=== PATIENT | male | born 1975 | race Caucasian/White ===

== ENCOUNTER 2017-10-19 10:53 | Inpatient (IN) | payer BC ==
[~2017-10-19] VITALS: Ht 167.6 cm; Wt 121.5 kg
[~2017-10-19 10:53] MED LIST: ADDE30XR PO
[2017-10-19] MEDS ORDERED: ACETAMINOPHEN 1000 MG/100 ML 100 ML IV ONE (11:06)
[2017-10-19] MEDS ORDERED: CHLORHEXIDINE GLUCONATE 4% SOLN 120 ML BTL TOPICAL SCH (11:45)
[2017-10-19] MEDS ORDERED: POVIDONE IODINE 5% (ANTISEPSIS KIT) 4 APPLICATIONS EACH NARE PRN (11:45)
[2017-10-19] MEDS ORDERED: CEFAZOLIN INJ 2,000 MG in SODIUM CHLORIDE 0.9% INJ 100 ML IV SCH (11:45)
[2017-10-19] MEDS ORDERED: VANCOMYCIN 1 GM/200 ML INJ 200 ML IV SCH (11:45)
[2017-10-19] MEDS ORDERED: SODIUM CHLORID 0.9% 500 ML IV PRN (11:45)
[2017-10-19] MEDS ORDERED: LACTATED RINGER'S 1000 ML IV PRN (11:45)
[2017-10-19] MEDS ORDERED: CHLORHEXIDINE GLUCONATE 2 % 1 PACK (2 CLOTHS) TOPICAL PRN (11:45)
[2017-10-19] MEDS ORDERED: METOPROLOL TARTRATE 25 MG TAB PO PRN (11:45)
[2017-10-19] MEDS ORDERED: ceFAZolin INJ 1,000 MG VIAL ONE (13:31)
[2017-10-19] MEDS ORDERED: GENTAMICIN SULFATE 80 MG/2 ML VIAL ONE (13:31)
[2017-10-19] MEDS ORDERED: ceFAZolin INJ 1,000 MG VIAL IV ONE ×2 (14:45→16:41)
[2017-10-19] MEDS ORDERED: MIDAZOLAM HCL 2 MG/2 ML VIAL ONE (15:10)
[2017-10-19] MEDS ORDERED: BUPIVACAINE/EPINEPHRINE 0.25% 50 ML VIAL ONE (16:04)
[2017-10-19] MEDS ORDERED: SODIUM CHLORIDE 0.9% 20 ML VIAL ONE (16:04)
[2017-10-19] MEDS ORDERED: BUPIVACAINE LIPOSOME PF 1.3% 20 ML VIAL ONE (16:05)
--- NOTE | 2017-10-19 16:36 | PD.OP ---
cc: Ricardo Pettit MD; Ayden Pettit MD Operative Report Date of Surgery: Oct 19, 2017 Preoperative Diagnosis: Osteoarthritis right hip. Ankylosis right hip External rotation contracture, right hip Postoperative Diagnosis: Same. 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 Surgeon: Ayden Pettit Vice Admiral(s): Ricardo Pettit Operation and Findings: EBL: 400 cc INDICATION: This patient presents with significant hip pain related to of ear osteoarthritis of the right hip with an abduction and external rotation contracture. He has very limited motion. He has severe osteoarthritis with dysplasia and lateral subluxation. Despite extensive conservative care this patient continues to be painful and now presents for surgical treatment. NOTE: Ricardo Pettit was present for the entire surgical procedure as my nurse first aid. In my medical opinion her skill and care was necessary for the proper management of this patient. COMPONENTS: COMPANY: [employer] CUP: Newton Hamilton, 54 mm, 100 series, gription surface LINER: Altrx 32 mm, neutral STEM: Corail, high offset, size 10, hydroxyapatite-coated HEAD: Ceramic, 2 mm, +5, 12/14 taper PROCEDURE: This patient was brought to the operating room and anesthetized in the supine position and positioned on the fracture table with both legs held extended. The right hip and leg was scrubbed with alcohol followed by Hibiclens followed by ChloraPrep and draped sterilely. Antibiotics were given within routine time window and a timeout was done. A 4 inch incision was made starting 2 cm distal and 2 cm lateral to the anterior superior iliac spine. The fascia verna was opened longitudinally. The interval between the fascia verna and the rectus was opened down to the capsule of the hip joint. Retractors were positioned allowing good visualization of the capsule. This was opened longitudinally and flaps were created. Stay sutures were utilized. Exposure was excellent. The neck was cut at the proper location using fluoroscopy as a guide. The head was removed. With the head there was a very large osteophyte extending into the deep portion of the inferior acetabulum. This measured over 18 mm across. This almost had the appearance of an old slipped capital femoral epiphysis healed in a malunited position. This was removed in multiple pieces Deep retractors were positioned allowing good visualization of the acetabulum. Acetabulum was deepened down to the floor starting with a proper size reamer and reaming up to 53 mm. A trial was utilized. Fluoroscopy was used to check position and confirmed satisfactory alignment. The rim was reamed with a 54 mm reamer and the final cup was positioned in approximately 20 of anteversion and 40-45 of abduction. Position was satisfactory. A single hole eliminator was positioned followed by the final liner. The lifting hook was utilized. The leg was dropped to the floor, maximally externally rotated and brought across the midline. Retractors were positioned. A box osteotome was utilized followed by progressive broaching to the proper stem size. Trial reduction showed excellent alignment and fit. With 60 of external rotation the leg was dropped to the floor without evidence of anterior subluxation. The wound was irrigated. The final stem was inserted and was found to be very stable. The final reduction using the final head. Stability was as previously noted. Intraoperative x-rays were taken. The wound was irrigated copiously. Hemostasis was controlled. Local anesthesia was utilized. The capsule was repaired with #2 Tycron sutures. The fascia verna was repaired with running 0 PDS on a loop. Subcutaneous tissue was approximated with 2-0 Vicryl and skin with running intradermal 3-0 Vicryl followed by Steri-Strips. A sterile dressing was applied. The patient was awakened and taken to the recovery room in satisfactory condition. FINDINGS: There was severe osteoarthritis of the right hip. There was some evidence suggestive of an old injury from when he was very young. This might have been an old slipped capital femoral epiphysis. At any rate there was significant locking of the femoral head to the acetabulum so that it was nearly completely ankylosed. This required multiple cuts across the femoral neck and femoral head to remove this in multiple pieces. The final solution appeared to be excellent. There was no complication that was appreciated. Ayden Pettit MD Oct 19, 2017 16:36
[2017-10-19] MEDS ORDERED: ROCURONIUM INJ 50 MG/5 ML SYRINGE IV PUSH ONE (16:41)
[2017-10-19] MEDS ORDERED: PROPOFOL 200 MG/20 ML AMP IV ONE (16:41)
[2017-10-19] MEDS ORDERED: ONDANSETRON HCL 4 MG/2 ML VIAL IV ONE (16:41)
[2017-10-19] MEDS ORDERED: LACTATED RINGER'S 1000 ML INJ 1,000 ML IV ONE (16:41)
[2017-10-19] MEDS ORDERED: GLYCOPYRROLATE 1 MG/5 ML SYRINGE IV PUSH ONE (16:41)
[2017-10-19] MEDS ORDERED: PHENYLEPH/NS 1000 MCG/10 ML SYR IV ONE (16:41)
[2017-10-19] MEDS ORDERED: LIDOCAINE HCL 1% PF 5 ML SYRINGE OTHER ONE (16:41)
[2017-10-19] MEDS ORDERED: NEOSTIGMINE 5 MG/5 ML SYRINGE IV PUSH ONE (16:41)
[2017-10-19] MEDS ORDERED: DEXAMETHASONE SOD PHOS 4 MG/ML VIAL IV ONE (16:41)
--- NOTE | 2017-10-19 17:03 | RADRPT ---
EXAM DATE/TIME: 10/19/2017 14:06 [facility] COMPARISON: FLUOROSCOPY PORTABLE UP TO 1HR, October 19, 2017, 0:00. INDICATIONS : Right anterior hip ORIF. Hip fracture. MEDICAL HISTORY : None. SURGICAL HISTORY : None. ENCOUNTER: Initial ACUITY: 1 day PAIN SCORE: Non-responsive. LOCATION: Right Hip. FINDINGS: The patient is post right hip arthroplasty. Orthopedic hardware is in excellent position. CONCLUSION: 1. Orthopedic hardware in excellent position. Benji Lyle MD on October 19, 2017 at 16:59 Board Certified Radiologist. This report was verified electronically.
[2017-10-19] MEDS ORDERED: *morphine SULFATE 8 MG/ML PERIprocedure ONLY ONE ×2 (17:10→17:18)
[2017-10-19] MEDS ORDERED: MORPHINE SULFATE 4 MG/ML INJ ONE (17:14)
[2017-10-19] MEDS ORDERED: ALUMINUM/MAGNESIUM/SIMETH 30 ML CUP PO PRN (17:15)
[2017-10-19] MEDS ORDERED: ZOLPIDEM TARTRATE 5 MG TAB PO PRN (17:15)
[2017-10-19] MEDS ORDERED: oxyCODONE/ACETAMINOPHEN 10 MG/325 MG TAB PO PRN (17:15)
[2017-10-19] MEDS ORDERED: ONDANSETRON HCL 4 MG/2 ML VIAL IVP PRN (17:15)
[2017-10-19] MEDS ORDERED: Post-op Orders (for Pharmacy) XX ONE (17:15)
--- NOTE | 2017-10-19 17:21 | HHI.FF ---
Face to Face Verification Diagnosis: (1) Osteoarthritis of right hip Physical Therapy Gait training, Transfer training, bed to chair Hip: Total hip, Protocol: Right Right LE Weight Bearing: WB as tolerated Nursing RN: 3 days/week x 2 weeks Dressing Changes: Do not change dressing Additional Instructions Aspirin 81 mg bid x 4 weeks dvt prop I have seen patient Blane Bauer on 10/19/17. My clinical findings support the need for the requested home health care services because: Deconditioned w/ increased weakness High risk of falls I certify that my clinical findings support that this patient is homebound because: Post-op weakness Ricardo Pettit MD Oct 19, 2017 17:21
[2017-10-19] MEDS ORDERED: WALKER WHEELS/F1 MIS (17:22)
[2017-10-19] MEDS ORDERED: *HYDROmorphone PF 1 MG VIAL PERIprocedural Use ONLY ONE ×2 (17:29→17:46)
[2017-10-19] MEDS: LACTATED RINGER'S 1000 ML INJ 1,000 ML IV SCH (18:00)
[2017-10-19] MEDS: oxyCODONE/ACETAMINOPHEN 10 MG/325 MG TAB PO PRN (19:11)
[2017-10-19 19:15] VITALS: BP 140/65; PULSE 100; RESP 18; TEMP 97.9; O2SAT 97
[2017-10-19] MEDS ORDERED: DO NOT ADM ANY ANTICOAGULANT DRUGS PRN (19:30)
[2017-10-19] MEDS: MORPHINE SULFATE 8 MG/ML INJ IV PUSH PRN (21:15)
[2017-10-19] MEDS: ASPIRIN EC 81 MG TABEC PO SCH (21:20)
[2017-10-20] VITALS: BP_SYST 129; BP_SYST 171; BP_DIAS 72; BP_DIAS 74; PULSE 86; PULSE 93; RESP 18; RESP 20; TEMP 99.3; O2SAT 92; O2SAT 97
[2017-10-20] MEDS: MORPHINE SULFATE 8 MG/ML INJ IV PUSH PRN ×5 (00:28→23:30)
[2017-10-20] MEDS: oxyCODONE/ACETAMINOPHEN 10 MG/325 MG TAB PO PRN ×4 (02:32→20:03)
[2017-10-20 04:00] VITALS: BP 131/59; PULSE 75; RESP 16; TEMP 98.1; O2SAT 97
[2017-10-20] MEDS: LACTATED RINGER'S 1000 ML INJ 1,000 ML IV SCH ×2 (06:19→19:00)
[2017-10-20] MEDS ORDERED: PERC7.5T13 PO (07:05)
[2017-10-20] MEDS ORDERED: ECASA81 PO (07:06)
--- NOTE | 2017-10-20 07:08 | PD.ORT.PN ---
Subjective Subjective Remarks pt has post operative right hip pain otherwise no complaints would like to be discharged home today Objective Vitals Vital Signs Date Time Temp Pulse Resp B/P (MAP) Pulse Ox O2 Delivery O2 Flow Rate FiO2 10/20/17 04:00 98.1 75 16 131/59 (83) 97 10/20/17 00:00 99.3 93 18 129/74 (92) 97 10/19/17 19:15 97.9 100 18 140/65 (90) 97 10/19/17 18:30 98.5 77 12 116/63 (80) 98 Nasal Cannula 10/19/17 18:15 66 12 111/60 (77) 96 Nasal Cannula 2 10/19/17 18:00 63 12 101/58 (72) 97 Nasal Cannula 2 10/19/17 17:45 61 14 123/65 (84) 96 Nasal Cannula 2 10/19/17 17:30 66 15 118/63 (81) 97 Nasal Cannula 2 10/19/17 17:15 70 18 114/58 (76) 96 Nasal Cannula 2 10/19/17 17:00 68 16 71/42 (52) 95 Nasal Cannula 3 10/19/17 16:58 99.1 69 12 82/43 (56) 95 Nasal Cannula 3 I/O 10/19/17 10/19/17 10/19/17 10/20/17 10/20/17 10/20/17 07:00 15:00 23:00 07:00 15:00 23:00 Intake Total 1900 ml 1548 ml Output Total 400 ml 600 ml Balance 1500 ml 948 ml Intake Oral 480 ml IV Total 1900 ml 1068 ml Output Urine Total 600 ml Estimated Blood Loss 400 ml # Bowel Movements 0 Objective Remarks seen and examined by Dr. Ricardo Pettit right hip anterior dressing dry and intact +NVI no calf tenderness Assessment & Plan Assessment and Plan POD #1 s/p R ALEXANDRU- anterior PT-WBAT Asprin 81 mg bid x 4 weeks dvt prop Radiation therapy today to right hip to prevent post operative H.O. orthopedically stable discharge home today with [facility] Eileen Hair Oct 20, 2017 07:08
[2017-10-20 07:26] LABS: HEMATOCRIT 35.1 % (39.0-51.0); HEMOGLOBIN 11.9 GM/DL (13.0-17.0)
[2017-10-20 08:00] VITALS: BP 139/65; PULSE 81; RESP 16; TEMP 98; O2SAT 98
[2017-10-20] MEDS ORDERED: MORPHINE SULFATE 8 MG/ML INJ IV PUSH PRN (08:00)
[2017-10-20] MEDS: DEXTROAMPHETAMINE/AMPHETAMINE XR 30 MG CAP PO SCH (09:00)
[2017-10-20] MEDS: ASPIRIN EC 81 MG TABEC PO SCH ×2 (09:02→20:03)
[2017-10-20 12:00] VITALS: BP 121/59; PULSE 75; RESP 16; TEMP 98.2; O2SAT 97
[2017-10-20] MEDS ORDERED: oxyCODONE/ACETAMINOPHEN 10 MG/325 MG TAB PO PRN (13:00)
[2017-10-20] MEDS ORDERED: COMMODE 3-IN-11 MIS (13:01)
--- NOTE | 2017-10-20 13:07 | PD.ORT.PN ---
Subjective Subjective Remarks pt has post operative right hip pain otherwise no complaints would like to be discharged home today Objective Vitals Vital Signs Date Time Temp Pulse Resp B/P (MAP) Pulse Ox O2 Delivery O2 Flow Rate FiO2 10/20/17 08:00 98.0 81 16 139/65 (89) 98 10/20/17 08:00 98.0 81 16 139/65 (89) 98 10/20/17 04:00 98.1 75 16 131/59 (83) 97 10/20/17 00:00 99.3 93 18 129/74 (92) 97 10/19/17 19:15 97.9 100 18 140/65 (90) 97 10/19/17 18:30 98.5 77 12 116/63 (80) 98 Nasal Cannula 10/19/17 18:15 66 12 111/60 (77) 96 Nasal Cannula 2 10/19/17 18:00 63 12 101/58 (72) 97 Nasal Cannula 2 10/19/17 17:45 61 14 123/65 (84) 96 Nasal Cannula 2 10/19/17 17:30 66 15 118/63 (81) 97 Nasal Cannula 2 10/19/17 17:15 70 18 114/58 (76) 96 Nasal Cannula 2 10/19/17 17:00 68 16 71/42 (52) 95 Nasal Cannula 3 10/19/17 16:58 99.1 69 12 82/43 (56) 95 Nasal Cannula 3 I/O 10/19/17 10/19/17 10/19/17 10/20/17 10/20/17 10/20/17 07:00 15:00 23:00 07:00 15:00 23:00 Intake Total 1900 ml 1548 ml Output Total 400 ml 600 ml Balance 1500 ml 948 ml Intake Oral 480 ml IV Total 1900 ml 1068 ml Output Urine Total 600 ml Estimated Blood Loss 400 ml # Bowel Movements 0 Result Diagram: 10/20/17 0705 Objective Remarks seen and examined by Dr. Ricardo Pettit right hip anterior dressing dry and intact +NVI no calf tenderness Assessment & Plan Assessment and Plan POD #1 s/p R ALEXANDRU- anterior PT-WBAT Asprin 81 mg bid x 4 weeks dvt prop Radiation therapy today to right hip to prevent post operative H.O. orthopedically stable discharge home today with [facility] ADDENDUM Received a call Monday afternoon that patient is too painful to go home. Percocet was changed from q 6 to q 4 hrs while in hospital only , still utilizing IV morphine for breakthrough Patient was on Morphine ER pre operatively but did not make anyone aware, did not have it as a home med in office chart and did not have it as a home med in [facility]. We will not be prescribing that medication at this time, will need to obtain on discharge from his pain management physician Therapist wanted us to order repeat x-ray to ensure prosthesis looks good, order in chart anticipate d/c home Monday if pain better controlled and [facility] authorized Eileen Hair Oct 20, 2017 13:07
--- NOTE | 2017-10-20 18:46 | RADRPT ---
EXAM DATE/TIME: 10/20/2017 18:13 [facility] COMPARISON: No previous studies available for comparison. INDICATIONS : Follow up right hip replacement. Pain. MEDICAL HISTORY : None. SURGICAL HISTORY : None. ENCOUNTER: Subsequent ACUITY: 2 days PAIN SCORE: 8/10 LOCATION: Right pelvis FINDINGS: View of the right hip and pelvis was obtained. Femoral neck is intact. No fracture is seen. The so ft tissues are unremarkable. CONCLUSION: The patient is status post a total hip arthroplasty with a bipolar prosthesis. Prosth esis is well-seated. Alignment is anatomic. A fracture is not appreciated. CONCLUSION: Anatomic alignment. Cuco Lyle MD FACR on October 20, 2017 at 18:43 Board Certified Radiologist. This report was verified electronically.
[2017-10-20 20:00] VITALS: BP 125/58; PULSE 88; RESP 18; TEMP 99.2; O2SAT 97
[2017-10-20] MEDS: DOCUSATE SODIUM 100 MG CAP PO SCH (20:03)
[2017-10-21] VITALS: BP 112/55; PULSE 91; RESP 18; TEMP 99.9; O2SAT 95
[2017-10-21] MEDS: oxyCODONE/ACETAMINOPHEN 10 MG/325 MG TAB PO PRN ×3 (01:30→13:54)
[2017-10-21] MEDS: LACTATED RINGER'S 1000 ML INJ 1,000 ML IV SCH (04:39)
[2017-10-21 08:00] VITALS: BP 124/68; PULSE 87; RESP 16; TEMP 98.2; O2SAT 96
--- NOTE | 2017-10-21 08:14 | PD.ORT.PN ---
Subjective Post Op Day #: 2 Subjective Remarks Patient OOB in chair with continued pain. Patient concerned about discharge and post op pain secondary to being on chronic Narcotics. Patient to contact pain management physician that he is established with. Objective Vitals Vital Signs Date Time Temp Pulse Resp B/P (MAP) Pulse Ox O2 Delivery O2 Flow Rate FiO2 10/21/17 00:00 99.9 91 18 112/55 (74) 95 10/20/17 20:00 99.2 88 18 125/58 (80) 97 10/20/17 12:00 98.2 75 16 121/59 (79) 97 I/O 10/20/17 10/20/17 10/20/17 10/21/17 10/21/17 10/21/17 07:00 15:00 23:00 07:00 15:00 23:00 Intake Total 1548 ml 720 ml 720 ml Output Total 600 ml Balance 948 ml 720 ml 720 ml Intake Oral 480 ml 720 ml 720 ml IV Total 1068 ml Output Urine Total 600 ml # Voids 4 1 # Bowel Movements 0 0 0 Result Diagram: 10/20/17 0705 Objective Remarks right hip anterior dressing dry and intact +NVI no calf tenderness + SILT Assessment & Plan Ortho Post Op Day #: 2 Problem List: Assessment and Plan POD #2 s/p R ALEXANDRU- anterior PT-WBAT Asprin 81 mg bid x 4 weeks dvt prop Radiation therapy today to right hip to prevent post operative H.O. orthopedically stable Post op XR or right hip reviewed and appears stable with no obvious complication. discharge home today with [facility] Benji Aldaan Oct 21, 2017 08:14
[2017-10-21] MEDS: DOCUSATE SODIUM 100 MG CAP PO SCH (10:00)
[2017-10-21] MEDS: ASPIRIN EC 81 MG TABEC PO SCH (10:00)
[2017-10-21] MEDS: DEXTROAMPHETAMINE/AMPHETAMINE XR 30 MG CAP PO SCH (10:02)
[2017-10-21 12:00] VITALS: BP 111/70; PULSE 85; RESP 16; TEMP 97.8; O2SAT 98
== END 2017-10-21 16:42 | disposition home health service (06) | DRG 470 ==
LOC: HSDI 10:53 → N06B 18:55
PROVIDERS: ADMIT Orthopaedic Surgery Orthopaedic Surgery of the Spine; ATTEND Orthopaedic Surgery Orthopaedic Surgery of the Spine
PROC: 0SR904A Replacement of Right Hip Joint with Ceramic on Polyethylene Synthetic Substitute, Uncemented, Open Approach (ICD-10-PCS; principal; 2017-10-19 13:29)
PROC: DW0 Radiation Therapy, Anatomical Regions, Beam Radiation (ICD-10-PCS; 2017-10-20)
DX: M16.11 Unilateral primary osteoarthritis, right hip (principal); Z68.41 Body mass index [BMI] 40.0-44.9, adult; E66.01 Morbid (severe) obesity due to excess calories; Z87.891 Personal history of nicotine dependence
CPT/HCPCS: 73501; 73502; 76000; 85014; 85018; 86850; 86900; 86901; 86920; 94150; C1776; C9290; J0131; J0690; J1100; J1170; J1580; J2250; J2270; J2370; J2405; J2710; J3010; J3370; J7120